=== PATIENT | female | born 1940 | race Caucasian/White ===

== ENCOUNTER 2018-03-09 08:48 | Outpatient (CLI) | payer MEDICARE, OTHER ==
--- NOTE | 2018-03-09 13:22 | PET ---
PET CT BRAIN: Date: 03/09/18 HISTORY: 77-year-old female with dementia without behavioral disturbance, unspecified dementia type. TECHNIQUE: PET CT of the brain was performed following the intravenous administration of 9.3 mCi [id number] in the right antecubital fossa. FINDINGS: Correlation is made with the CT brain of 04/04/17. No significant hypometabolic areas are seen in the cerebral hemispheres. No hypometabolism is seen in the precuneus or posterior cingulate gyrus. IMPRESSION: Unremarkable exam. POS: ANU
== END 2018-03-09 08:49 | disposition home or self-care (01) ==
LOC: PET 08:48
PROVIDERS: ATTEND Psychiatry & Neurology Neurology
DX: F03.90 Unspecified dementia, unspecified severity, without behavioral disturbance, psychotic disturbance, mood disturbance, and anxiety (principal)
CPT/HCPCS: 78608; A9552

== ENCOUNTER 2018-12-21 15:31 | Outpatient (CLI) | payer MEDICARE, OTHER ==
--- NOTE | 2018-12-21 16:37 | MMO ---
Bilateral MAMMO Bilat Screen [facility]. CLINICAL HISTORY: Patient is 78 years old and is seen for screening. The patient has no family history of breast cancer. The patient has no personal history of cancer. VIEWS: The views performed were: bilateral craniocaudal with tomosynthesis and bilateral mediolateral oblique with tomosynthesis. FILMS COMPARED: The present examination has been compared to prior imaging studies performed at [facility] on 08/19/2013, 07/29/2014, 10/11/2015 and 10/14/2016. MAMMOGRAM FINDINGS: There are scattered fibroglandular densities. Finding 1: There are stable benign appearing calcifications seen in both breasts. Finding 2: There are several stable focal asymmetries seen in both breasts. There are no suspicious masses, suspicious calcifications, or new areas of architectural distortion. IMPRESSION: THERE IS NO MAMMOGRAPHIC EVIDENCE OF MALIGNANCY. A ROUTINE FOLLOW-UP MAMMOGRAM IN 1 YEAR IS RECOMMENDED. THE RESULTS OF THIS EXAM WERE SENT TO THE PATIENT. ACR BI-RADS Category 2 - Benign finding MAMMOGRAPHY NOTE: 1. A negative mammogram report should not delay a biopsy if a dominant of clinically suspicious mass is present. 2. Approximately 10% to 15% of breast cancers are not detected by mammography. 3. Adenosis and dense breasts may obscure an underlying neoplasm.
== END 2018-12-21 15:32 | disposition home or self-care (01) ==
LOC: BICMAMMO 15:31
PROVIDERS: ATTEND Family Medicine
DX: Z12.31 Encounter for screening mammogram for malignant neoplasm of breast (principal)
CPT/HCPCS: 77063; 77067

== ENCOUNTER 2021-01-24 12:05 | Outpatient (CLI) | payer MEDICARE, OTHER | END 2021-01-24 12:06 | disposition home or self-care (01) | LOC: BICMAMMO 12:05 | PROVIDERS: ATTEND Family Medicine | DX: Z12.31 Encounter for screening mammogram for malignant neoplasm of breast (principal) | CPT/HCPCS: 77063; 77067 ==